=== PATIENT | male | born 1995 | race Caucasian/White ===

== ENCOUNTER 2024-12-24 22:23 | Inpatient (IN) | payer SELFPAY ==
[~2024-12-24] VITALS: Ht 180.3 cm; Wt 63.5 kg
[2024-12-24 22:29] VITALS: O2SAT 98
[2024-12-24] MEDS: TETANUS, DIPHTHERIA, PERTUSSIS VAC/PF 0.5ML (>10YR OLD) IM ONE (23:05)
[2024-12-24] MEDS: ACETAMINOPHEN 325MG TABLET PO ONE (23:05)
[2024-12-24 23:33] LABS: BASOPHILS % 0.2 % (0.0-2.0); EOSINOPHILS % 0.4 % (0.0-5.0); HEMATOCRIT. 43.9 % (42.0-52.0); HEMOGLOBIN. 14.6 g/dL (14.0-18.0); LYMPHOCYTES % 8.9 % (20.0-50.0); MEAN PLATELET VOLUME 8.3 fl (7.4-10.4); MONOCYTES % 4.4 % (2.0-8.0); NEUTROPHILS % 86.1 % (40.0-76.0); PLATELET 297 x1000/uL (130-400); RED BLOOD CELL COUNT 4.77 mill/uL (4.7-6.1); RED CELL DISTRIBUTION WIDTH 13.3 % (11.6-14.6)
[2024-12-24 23:44] LABS: CREATININE 1.2 mg/dL (0.6-1.3); UREA NITROGEN BLOOD 14 mg/dL (9-23)
[2024-12-24 23:45] LABS: INR 0.9
[2024-12-24] MEDS: LIDOCAINE HCL 1% 20ML VIAL INFIL ONE (23:47)
[2024-12-24] MEDS: OXYCODONE HCL/ACETAMINOPHEN 5/325MG TABLET PO ONE (23:50)
[2024-12-24] MEDS: SODIUM CHLORIDE 0.9% 1,000 ML IV ONE (23:51)
[2024-12-24] MEDS: CEFAZOLIN 1000MG PREMIX 50 ML IV ONE (23:51)
[2024-12-25] MEDS ORDERED: CHLORDIAZEPOXIDE 25MG CAPSULE PO PRN (01:45)
[2024-12-25] MEDS ORDERED: GUAIFENESIN 200MG/10ML SUGAR FREE UDC PO PRN (01:45)
[2024-12-25] MEDS ORDERED: DOCUSATE SODIUM 100MG CAPSULE PO PRN (01:45)
[2024-12-25] MEDS ORDERED: NALOXONE HCL 0.4MG/ML VIAL IV PRN (01:45)
[2024-12-25] MEDS ORDERED: LORAZEPAM 1MG TABLET PO PRN (01:45)
[2024-12-25] MEDS: SODIUM CHLORIDE 0.9% 1,000 ML IV SCH (01:45)
[2024-12-25] MEDS ORDERED: ACETAMINOPHEN 325MG TABLET PO PRN ×2 (01:45)
[2024-12-25] MEDS ORDERED: IPRATROPIUM/ALBUTEROL 0.5-3(2.5)MG/3ML NEB HHN PRN (01:45)
[2024-12-25 04:00] VITALS: BP 121/78; PULSE 68; RESP 20; TEMP 35.9; O2SAT 99
[2024-12-25] MEDS: HYDROCODONE/ACETAMINOPHEN 5/325MG TABLET PO PRN (04:01)
[2024-12-25 05:09] VITALS: BP 116/77; PULSE 80; RESP 18; TEMP 36.9184
[2024-12-25] MEDS: PANTOPRAZOLE 40MG DR TABLET PO SCH (07:20)
[2024-12-25 08:00] VITALS: BP 128/71; PULSE 84; RESP 18; TEMP 37.4; O2SAT 96
[2024-12-25] MEDS: FOLIC ACID 1MG TABLET PO SCH (10:55)
[2024-12-25] MEDS: MULTIVITAMINS,THER W-MINERALS TABLET PO SCH (10:55)
[2024-12-25 12:00] VITALS: BP 126/84; PULSE 61; RESP 17; TEMP 36.9; O2SAT 97
[2024-12-25] MEDS: ONDANSETRON HCL 4MG/2ML INJ IV PRN (12:00)
[2024-12-25 12:42] LABS: CREATININE 0.8 mg/dL (0.6-1.3); UREA NITROGEN BLOOD 10 mg/dL (9-23)
[2024-12-26] MEDS ORDERED: CEPH500C2 MT (23:19)
[2024-12-27] MEDS ORDERED: THIAMINE HCL 100MG TABLET PO SCH (09:00)
== END 2024-12-25 15:43 | disposition left against medical advice (07) | DRG 342 ==
LOC: ER 22:30 → 6EST 12-25 00:05 → EDBEDREQTM 12-25 00:25 → EDBEDREQ 12-25 00:25 → ENRESERV 12-25 00:50
PROVIDERS: ADMIT Internal Medicine; ATTEND Internal Medicine
DX: S62.304A Unspecified fracture of fourth metacarpal bone, right hand, initial encounter for closed fracture (principal); R65.10 Systemic inflammatory response syndrome (SIRS) of non-infectious origin without acute organ dysfunction; S62.338A Displaced fracture of neck of other metacarpal bone, initial encounter for closed fracture; J45.909 Unspecified asthma, uncomplicated; F10.20 Alcohol dependence, uncomplicated; S62.306A Unspecified fracture of fifth metacarpal bone, right hand, initial encounter for closed fracture; Z53.29 Procedure and treatment not carried out because of patient's decision for other reasons; X99.1XXA Assault by knife, initial encounter; Y93.89 Activity, other specified; Y92.89 Other specified places as the place of occurrence of the external cause; Y99.8 Other external cause status
CPT/HCPCS: 36415; 71045; 73130; 80048; 82550; 84145; 85025; 90715; 94640; 99285; J0690; J2003; J2405; J7030